=== PATIENT | male | born 1965 | race Two or more races ===

== ENCOUNTER 2017-10-31 21:43 | Emergency (ER) | payer OTHER, BC ==
[2017-10-31 21:54] VITALS: BP 136/81
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
[2017-11-01] MEDS ORDERED: HYDROCODONE/ACETAMINOPHEN 5-325 MG (6 TAB/ER DISP) PO PRN (00:04)
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
== END 2017-11-01 00:15 | disposition home or self-care (01) ==
LOC: ER 21:43
DX: R07.89 Other chest pain (principal); V87.7XXA Person injured in collision between other specified motor vehicles (traffic), initial encounter
CPT/HCPCS: 71046; 71120; 99284